=== PATIENT | male | born 1945 | race Caucasian/White ===

== ENCOUNTER 2018-03-06 00:05 | Inpatient (IN) | payer MEDICARE, OTHER ==
[2018-03-06] MEDS ORDERED: fentaNYL Citrate/PF 2,000 MCG in Sodium Chloride 0.9% 60 ML IV SCH ×2 (00:23→04:16)
[2018-03-06 00:46] LABS: ALT (SGPT) 9 U/L (8-55); AST (SGOT) 26 U/L (5-34); Albumin 2.8 g/dL (3.4-4.8); Alkaline Phosphatase 54 U/L (40-150); Anion Gap 15 mmol/L (10-20); BUN (Urea Nitrogen) 12 mg/dL (8.4-25.7); Bilirubin, Total 0.2 mg/dL (0.2-1.2); Calc. Creatinine Clearance 0 mL/min (70-130); Calcium 7.1 mg/dL (7.8-10.44); Carbon Dioxide 17 mmol/L (23-31); Chloride 114 mmol/L (98-107); Estimated GFR-MDRD Greater than 90; Globulin 2.1 g/dL (2.4-3.5); Glucose 74 mg/dL (80-115); Potassium 3.5 mmol/L (3.5-5.1); Protein, Total 4.9 g/dL (5.8-8.1); Sodium 142 mmol/L (136-145)
[2018-03-06 00:47] LABS: INR-International Normal Ratio 1.1; PTT 29.2 SEC (22.9-36.1); Prothrombin Time 14.2 SEC (12.0-14.7)
[2018-03-06 00:49] LABS: CKMB 2.5 ng/mL (0-6.6); Troponin I Less than 0.010 ng/mL (< 0.028)
[2018-03-06 00:56] LABS: Actual Bicarbonate (HCO3a) 17.7 mEq/L (22-28); Base Excess (BEa) -8.1 mEq/L (-2.0 to +3.0); O2 Tension (PaO2) 372.5 mmHg (> 70.0)
[2018-03-06 00:57] LABS: Analyzer IN Cardio ER; Calcium, Ionized 1.1 mmol/L (1.12-1.30); Hematocrit-ABG 36.3 % (42.0-52.0); Hemoglobin (Hb) 12.2 g/dL (14.0-18.0); Puncture Site R RADIAL
[2018-03-06 01:07] LABS: #Basophils 0.1 thou/uL (0.0-0.2); #Eosinphils 0.3 thou/uL (0.0-0.7); #Lymphocytes 2.6 thou/uL (1.20-3.40); %Basophils 0.4 % (0.0-1.0); %Eosinophils 1.6 % (0.0-10.0); %Lymphocytes 16.4 % (21.0-51.0); %Monocytes 6.2 % (0.0-10.0); %Neutrophils 75.5 % (42.0-75.0); Hemoglobin 11.8 g/dL (14.0-18.0); MDiff Complete? YES; Macrocytosis SLIGHT = 6-15 cells (100X) (0-5/hpf); Mean Corpuscular HGB CONC 32.4 g/dL (32.0-36.0); Mean Platelet Volume 8.6 fL (7.4-10.4); PLT Morphology Comment Appears Adequate; Platelet Count 153 thou/uL (130-400); RBC Distribution Width 11.7 % (11.5-14.5); Red Blood Cell (RBC) Count 3.47 mill/uL (4.70-6.10); White Blood Cell (WBC) Count 15.9 thou/uL (4.8-10.8)
[2018-03-06 01:25] LABS: Bilirubin Negative (Negative); Blood, Urine Moderate (Negative); Clarity CLEAR (Clear); Glucose, Urine (Dipstick) Negative (Negative); Leukocyte Trace (Negative); Nitrite Negative (Negative); Protein, Urine (Dipstick) Negative (Neg-Trace); Specific Gravity, Urine 1.017 (1.002-1.036); Urobilinogen 0.2 mg/dL (0.2-1.0); pH, Urine 5.5 (5.0-9.0)
[2018-03-06 01:28] LABS: Bacteria/HPF None Seen HPF (None Seen); Hyaline Casts/LPF 7-10 HYALINE CAST LPF (0-3 Hyaline); Pathc Cast-AUWi Flag 2.32 (0-2.49); RBC/HPF 21-50 HPF (0-3); Squamous Epithelial 0-3 HPF (0-3); WBC/HPF 0-3 HPF (0-3)
[2018-03-06] MEDS ORDERED: Piperacillin/Tazobactam 3.375 GM VIAL ONE (02:04)
[2018-03-06] MEDS ORDERED: Propofol 1,000 MG/100 ML VIAL IV PRN ×2 (03:04→04:16)
[2018-03-06] MEDS ORDERED: Lorazepam 2 MG/ML VIAL SLOW IVP PRN ×3 (03:04→14:49)
[2018-03-06] MEDS ORDERED: Morphine 4 MG/ML VIAL SLOW IVP PRN ×2 (03:04→04:16)
[2018-03-06] MEDS ORDERED: Fentanyl BOLUS 250 ML IVPB PRN ×2 (03:04→04:16)
[2018-03-06] MEDS ORDERED: DISCONTINUE PREVIOUS NARCOTIC PAIN MEDICATIONS AND BENZODIAZEPINES FS SCH ×2 (03:04→04:16)
[2018-03-06] MEDS ORDERED: Propofol BOLUS 1,000 MG/100 ML VIAL IV PRN ×2 (03:04→04:16)
[2018-03-06] MEDS ORDERED: Ondansetron ODT 4 MG TAB SL PRN (03:06)
[2018-03-06] MEDS ORDERED: Sodium Chloride 0.9% 1,000 ML IV SCH ×2 (03:06→04:15)
[2018-03-06] MEDS ORDERED: Ondansetron HCl/PF 4 MG/2 ML Vial IVP PRN ×2 (03:06→04:10)
[2018-03-06] MEDS ORDERED: Acetaminophen 325 MG TAB PO PRN (03:06)
[2018-03-06] MEDS ORDERED: Atropine Sulfate 1 mg/10 ml Syringe IV SCH (03:45)
[2018-03-06 03:53] LABS: Troponin I 0.021 ng/mL (< 0.028)
[2018-03-06] MEDS ORDERED: Ondansetron ODT 4 MG TAB PO PRN (04:10)
[2018-03-06] MEDS ORDERED: Acetaminophen 650 MG Suppository PR PRN (04:10)
[2018-03-06 04:12] VITALS: BMI 26.9
[2018-03-06] MEDS ORDERED: Ventilator Sedation Protocol 1 EACH FS SCH (04:15)
[2018-03-06 07:14] LABS: Actual Bicarbonate (HCO3a) 18.2 mEq/L (22-28); Base Excess (BEa) -5.3 mEq/L (-2.0 to +3.0); CO2 Tension 29.1 mmHg (35.0-45.0); Hemoglobin (Hb) 11.8 g/dL (14.0-18.0); O2 Tension (PaO2) 86.6 mmHg (> 70.0); pH, Arterial 7.41 (7.35-7.45)
[2018-03-06 07:16] LABS: ALV-art Gradient 90.925 (0-20); Puncture Site RRA
[2018-03-06] MEDS ORDERED: Prevnar 13-Val Conj/PF 0.5 ML SYRINGE IM ONE (09:00)
--- NOTE | 2018-03-06 09:27 | RAD ---
PORTABLE SUPINE CHEST: Date: 03/06/18 HISTORY: Altered mental status. Bradycardia. History of previous stroke. Endotracheal tube placement. FINDINGS: An endotracheal tube is in satisfactory position. NG tube is below the hemidiaphragm. Heart size is b orderline. Aorta is tortuous with atherosclerotic changes. Lungs show some chronic lung change. IMPRESSION: 1. Endotracheal and NG tubes in satisfactory position. 2. Chronic lung change. POS: [facility]
[2018-03-06] MEDS: Enoxaparin Sodium 30 MG/0.3 ML SYRINGE SC SCH (09:37)
[2018-03-06] MEDS: Famotidine/PF 20 mg/2ml Vial SLOW IVP SCH ×2 (09:38→20:24)
[2018-03-06] MEDS: Sodium Chloride 0.9% 1,000 ML IV SCH (09:45)
[2018-03-06] MEDS: Aspirin 81 mg Enteric Coated Tablet PO SCH (12:08)
--- NOTE | 2018-03-06 12:47 | CT ---
PRELIMINARY REPORT/[facility]/EMERGENCY AFTER HOURS PROCEDURE: Addendum created by Bob Zarate MD on 03/06/2018 12:40 AM Central Time ([place] & [place]) CRITICAL RESULT: The study was discussed on the telephone with [CARA Rothman] on 03/06/2018 12:40 AM CDT. The results were understood and acknowledged. Initial Report created on 03/06/2018 12:26 AM Central Time ( [place] & [place]) EXAM: CT Head Without Intravenous Contrast CLINICAL HISTORY: 72 years old, male; Signs and symptoms; Other: Unresponsive; Patient HX: stroke alert last seen n ormal at 2200, found unresponsive, previous stroke TECHNIQUE: Axial computed tomography images of the head/brain without intravenous contrast. COMPARISON: No relevant prior studies available. FINDINGS: Brain: No intracranial hemorrhage. No CT evidence of acute ischemia. Large old LEFT frontoparietal in farct with extensive white matter ischemic change. Dense atherosclerotic vascular calcifications are identified. Ventricles: No ventriculomegaly. The subarachnoid cisterns and extar-axial CSF spaces are unremarkabl e. Bones/joints: Unremarkable. No acute fracture. Soft tissues: Unremarkable. Sinuses: No acute sinusitis. Mastoid air cells: No mastoid effusion. IMPRESSION: No acute intracranial hemorrhage. Large old LEFT frontoparietal infarct and extensive small vessel ischemic change Thank you for allowing us to participate in the care of your patient. Dictated and Authenticated by: Bob Zarate MD 03/06/2018 12:26 AM Central Time ([place] & [place]) FINAL REPORT EMERGENCY AFTER HOURS CT OF BRAIN PERFORMED WITHOUT CONTRAST ENHANCEMENT: Date: 03/06/18 HISTORY: Patient found unresponsive, history of stroke. COMPARISON: 11/27/15. FINDINGS: There is generalized ventricular and sulcal prominence. There is a stable appearance to a large old l eft MCA infarct. There are no signs of intracerebral hemorrhage or extra-axial fluid collections. Chr onic white matter changes are noted. Mastoid air cells are clear. Mucosal disease is seen within the ethmoid and sphenoid air cells. IMPRESSION: 1. Old left MCA infarct. 2. No acute intracranial abnormalities. This report is in agreement with the preliminary report issued by [facility]. POS: [facility]
--- NOTE | 2018-03-06 12:48 | CON ---
DATE OF CONSULTATION: 03/06/2018 REASON FOR CONSULTATION: Acute respiratory failure related to bradycardia. HISTORY OF PRESENT ILLNESS: The patient is a 72-year-old male who was noted to have altered mental status at home. He was obtunded with a GCS of 6, had severe bradycardia with heart rate of 40, apparently was not protecting his airway and was subsequently intubated. Further workup by ER staff was largely unrevealing. He had a CT which apparently did not show any changes in the chronically occluded left ICA, which is known from previous stroke a couple of years ago. He also has a small focal high-grade occlusion of the right ICA. The patient is awake and alert this morning, wanting to be extubated. PAST MEDICAL HISTORY: 1. Chronic atrial fibrillation. 2. Stroke. PAST SURGICAL HISTORY: Hernia repair. SOCIAL HISTORY: Smokes 1-1/2 packs per day and has done so for the last 30 years. FAMILY MEDICAL HISTORY: Unremarkable. REVIEW OF SYSTEMS: Unable to obtain. ALLERGIES: None. MEDICATIONS PRIOR TO ADMISSION: [place] 3 fatty acids, Prilosec, aspirin, metoprolol, multivitamin, atorvastatin, and lisinopril. PHYSICAL EXAMINATION: VITAL SIGNS: Temperature 97.7, pulse 63, blood pressure 109/50, respiratory rate 17, O2 sat 100%. GENERAL: He is now awake, alert, and in no distress. HEENT: Pupils react. Sclerae icteric. Oropharynx clear. NECK: No JVD. LUNGS: Clear. CARDIOVASCULAR: S1, S2, irregularly irregular, no murmur. ABDOMEN: Soft, nontender, nondistended. EXTREMITIES: No clubbing, cyanosis, or edema. LABORATORY AND X-RAY FINDINGS: White blood cell count 15.9, hematocrit 36.3, platelet count 153. PH 7.41, pCO2 of 29, pO2 86 on SIMV rate 20, tidal volume 500, PEEP 5, pressure support 10, FiO2 30%. Sodium 142, potassium 3.5, chloride 114, CO2 17, BUN 12, creatinine 0.8, and glucose 74. Chest x-ray demonstrates cardiomegaly, flattened diaphragms. No mass, effusion or infiltrate. ASSESSMENT: 1. Acute respiratory failure - improved. 2. Bradycardia - improved. 3. Possible new stroke. PLAN: 1. The patient was extubated without difficulty. I have Cardiology look at him to make sure he does not need a pacemaker. 2. Neurology. We will also look at the patient. 3. GI prophylaxis with Protonix. 4. DVT prophylaxis with enoxaparin. The above encompassed 70 minutes time of it greater than 50% of the time was spent with the patient and/or the patient's unit in the hospital MTDD
--- NOTE | 2018-03-06 12:50 | CT ---
PRELIMINARY REPORT/[facility]/EMERGENCY AFTER HOURS PROCEDURE: Addendum created by Bob Zarate MD on 03/06/2018 12:54 AM Central Time ([place] & [place]) CRITICAL RESULT: The study was discussed on the telephone with [CARA Rothman] on 03/06/2018 12:54 AM CDT. The results were understood and acknowledged. Initial Report created on 03/06/2018 12:50 AM Central Time ( [place] & [place]) EXAM: CT Angiography Head With Intravenous Contrast CLINICAL HISTORY: 72 years old, male; Signs and symptoms; Other: Unresponsive; Patient HX: stroke alert last seen n ormal at 2200, found unresponsive, previous stroke; Additional info: *this is a cta head and cta neck * TECHNIQUE: Axial computed tomographic angiography images of the head with intravenous contrast using CT angiogra phy protocol. MIP reconstructed images were created and reviewed. Coronal and sagittal reformatted im ages were created and reviewed. COMPARISON: CT Brain WO Con 2018-03-06 00:20 FINDINGS: Right internal carotid artery: No acute findings. Intracranial segment is patent with no significant stenosis. No aneurysm. Right anterior cerebral artery: Unremarkable. No occlusion or significant stenosis. No aneurysm. Right middle cerebral artery: Unremarkable. No occlusion or significant stenosis. No aneurysm. Right posterior cerebral artery: Unremarkable. No occlusion or significant stenosis. No aneurysm. Right vertebral artery: Unremarkable as visualized. Left internal carotid artery: Complete occlusion. Left anterior cerebral artery: Unremarkable. No occlusion or significant stenosis. No aneurysm. Left middle cerebral artery: Unremarkable. No occlusion or significant stenosis. No aneurysm. Left posterior cerebral artery: Unremarkable. No occlusion or significant stenosis. No aneurysm. Left vertebral artery: Unremarkable as visualized. Basilar artery: Unremarkable. No occlusion or significant stenosis. No aneurysm. IMPRESSION: Complete occlusion of the LEFT internal carotid artery. There is reconstitution of the LEFT COLLETTE and M CA possibly from posterior communicating artery. Please see the neck CTA for further detail Thank you for allowing us to participate in the care of your patient. Dictated and Authenticated by: Bob Zarate MD 03/06/2018 12:50 AM Central Time ([place] & [place]) EXAM: CT Angiography Neck With Intravenous Contrast CLINICAL HISTORY: 72 years old, male; Signs and symptoms; Other: Unresponsive; Patient HX: stroke alert last seen n ormal at 2200, found unresponsive, previous stroke; Additional info: *this is a cta head and cta neck * TECHNIQUE: Axial computed tomographic angiography images of the neck with intravenous contrast using CT angiogra phy protocol. MIP reconstructed images were created and reviewed. COMPARISON: CT Brain WO Con 2018-03-06 00:20 FINDINGS: VASCULATURE: Right common carotid artery: Unremarkable. No significant stenosis. No dissection or occlusion. Right internal carotid artery: Short segment area of severe stenosis approximately 1 cm from the bifu rcation. Moderate atherosclerotic disease. Right external carotid artery: Unremarkable. No occlusion. Right vertebral artery: Unremarkable. No significant stenosis. No dissection or occlusion. Left common carotid artery: Unremarkable. No significant stenosis. No dissection or occlusion. Left internal carotid artery: Complete occlusion of the LEFT ICA just distal to the bifurcation. No s ignificant flow is identified to the level of the petrous ICA. Left external carotid artery: Unremarkable. No occlusion. Left vertebral artery: Unremarkable. No significant stenosis. No dissection or occlusion. NECK: Bones/joints: No acute fracture. No dislocation. Soft tissues: Endotracheal tube and enteric tube present. The soft tissues of the neck are unremarkable. CAROTID STENOSIS REFERENCE USING NASCET CRITERIA: % ICA stenosis = (1 - narrowest ICA diameter/diameter of distal cervical ICA) x 100. Mild - <50% stenosis. Moderate - 50-69% stenosis. Severe - 70-94% stenosis. Near occlusion - 95-99% stenosis. Occluded - 100% stenosis. IMPRESSION: Complete occlusion of the LEFT ICA just distal to the bifurcation Short segment area of severe stenosis of the RIGHT ICA 1 cm from the bifurcation. CRITICAL RESULT: The study was discussed on the telephone with [CARA Rothman] on 03/06/2018 1: 04 AM CDT. The results were understood and acknowledged. Thank you for allowing us to participate in the care of your patient. Dictated and Authenticated by: Bob Zarate MD 03/06/2018 1:04 AM Central Time ([place] & [place]) FINAL REPORT CT ANGIO OF HEAD AND NECK PERFORMED WITH IV CONTRAST ENHANCEMENT WITH 3D RECONSTRUCTIONS: Date: 03/06/18 HISTORY: Altered mental status. Stroke alert. Patient has a history of previous stroke. FINDINGS: CT ANGIO NECK: There are chronic appearing changes in the upper lobes of both lung goss. There is also some collat eralization of flow over the right chest related to the right arm injection and there appears to be s tenosis of the subclavian vein. An endotracheal tube is in satisfactory position. There is no significant adenopathy within the neck. The thyroid gland is within normal limits of size. Parapharyngeal spaces are clear. Mucosal changes are seen within the sphenoid and ethmoid air cells with minimal changes in the left maxillary sinus. Angiographic portion of this study yielded a good study. There are atherosclerotic changes of the aor tic arch. There is a separate origin of the left common carotid artery from the aortic arch. There is some atherosclerotic plaque at the origin of the left common carotid. On the right side, the right common carotid artery shows fairly minimal atherosclerotic plaque. There is moderate calcified plaque formation at the origin of the right internal and external carotid indira gage. There is no significant narrowing of the external carotid artery. However, there is a focal katherine rt segment severe stenosis of the right internal carotid artery slightly greater than 1.0 cm beyond i ts origin. On the left side, the left common carotid artery is small as compared to the right. There is plaque a t the origin of the right external carotid artery with only minimal narrowing at this level. There is complete occlusion of the origin of the left internal carotid artery. The vertebral arteries appear codominant. There is some moderate atherosclerotic plaque at the origin of both vertebral arteries. There is mild narrowing of the right vertebral at its origin. Distally, the left vertebral appears to make a greater contribution to the basilar artery. CT ANGIO HEAD: There is moderate atherosclerotic plaque of the cavernous portion of the right internal carotid arter y with patent appearing anterior and right middle cerebral arteries and their branches without signs of any thrombus. On the left side, the cavernous portion of the left internal carotid artery is completely occluded; h owever, there is flow seen within the A1 and M1 segments of the left anterior and middle cerebral art eries, respectively. This appears to be related to crossover flow from an anterior communicator, as w ell as from a left posterior communicating artery. The A2 branch and distal branch of the left anteri or cerebral artery appear unremarkable, and left middle cerebral artery branches show no signs of any thrombus. There has been a large left MCA infarct, which is old. The posterior cerebral arteries appear patent. IMPRESSION: 1. There is complete occlusion of the left internal carotid artery at its origin. 2. Severe stenosis of the right internal carotid artery just distal to its origin. Stenosis by NASCE T criteria is estimated at 70-94%. 3. Intracranially, no signs of any acute thrombus. There is occlusion of the cavernous portion of th e left internal carotid artery and evidence of an old left MCA infarct. Flow from a patent anterior c ommunicator and left posterior communicating artery supply the left anterior and middle cerebral indira gage and their branches. This report is in agreement with the preliminary report issued by [facility]. POS: [facility]
--- NOTE | 2018-03-06 14:32 | CON ---
DATE OF CONSULTATION: 03/06/2018 CHIEF COMPLAINT: Sudden loss of consciousness and alteration in level of alertness. HISTORY OF PRESENT ILLNESS: History was obtained from ER physician who called me last night as well as his and sister. The patient has had a prior left ICA 100% occlusion along with the left MCA CVA and he was sick. His baseline is , he is pretty independent but gets weak when he walks for a bit and he has fallen 4 times since last stroke. His stated even neighbors noticed that he quickly runs when he is getting weaker and falls. They have to limit the amount of time he has to take his dog for a walk. also reported in the past couple of weeks or so, he has been having some cough and increased sneezing. They took him to his primary care doctor and they thought it was due to allergies. The patient's reported that he has had low blood pressures in the past 1 week or so. Yesterday, they were sitting in the family room, watching news and he went to get his medications and noticed that he was not responding to her and he became cold, clammy and sweaty and she could not wake him up. She therefore called 911 and subsequently he was intubated. By the time he arrived at the ER, CT angiogram showed 30% blockage of right ICA and also no perfusion was done yesterday and he had 100% blockage of his left ICA. Overnight, he was stable and he is now extubated and other than his prior preexisting neurological deficits of right facial droop, right leg weakness and aphasia, reports he seems to be back to baseline at this time. PAST MEDICAL HISTORY: Positive for CVA in 2016 with the complete left ICA occlusion. He also has abdominal aortic aneurysm size 4.6 cm which is being monitored by his physician. He has atrial fibrillation. He has hyperlipidemia and he is on medications for the same. He has lower back pain and he has blood clots and peripheral vascular disease. PAST SURGICAL HISTORY: Hernia repair bilaterally. PSYCHIATRIC HISTORY: PTSD. SOCIAL HISTORY: He drinks daily less than 5 drinks per day. No drug use. He smokes daily. He has smoked for a number of years. ALLERGIES: No known drug allergies. FAMILY HISTORY: Negative for any acute stroke. CURRENT MEDICATIONS: At home atorvastatin, lisinopril, gabapentin, Prilosec, metoprolol, aspirin. LABORATORY DATA: His white count 15.9, hemoglobin 11.8, hematocrit 36.3, MCV 105 and MCH 34, platelets 153. PT 14.2, INR 1.1, PTT 29.2. Sodium 142, potassium 3.5, chloride 114, bicarbonate 17, BUN 12, creatinine 0.83, AST 26, ALT 9, glucose 74. IMAGING STUDIES: CT scan of the head and CT angio, no typed official report is available; however, per ER physician's note, there was no evidence of acute intracranial lesion, but he had a 30% occlusion of the right ICA and 100% occlusion of his left ICA. I reviewed a CT angiography report from 11/25/2015 which is available in the system and at that time as well he had a complete occlusion of internal carotid on the left at his origin with diminutive intracranial ICA on the left and bilateral proximal vertebral artery stenosis and 50% stenosis of origin of right ICA based on acid criteria and he had a left MCA infarct. PHYSICAL EXAMINATION: VITAL SIGNS: Blood pressure 116/48, pulse is 67, temperature 98 and chest clear. GENERAL APPEARANCE: Well-built, well-nourished, pleasant gentleman who he seems to have expressive aphasia. He is comfortable in his bed. CHEST: Clear vesicular breathing. CARDIOVASCULAR: S1, S2 heard, no murmurs. ABDOMEN: Soft, nontender, no organomegaly noted. NEUROLOGIC: Higher Intellectual functions, seems to understand my interaction, says yes or no. Has expressive aphasia (severe). Cranial nerves: Cranial nerves II-XII normal fundus exam. Normal pupillary reaction, normal extraocular movements, normal sensation of face bilaterally, right facial droop , normal elevation of palate, tongue is midline and decreased hearing bilaterally to finger rub. Motor examination: Bulk normal, tone normal, strength 5/5 throughout in upper limbs and strength 5/5 left lower extremity and in the right lower extremity, he has mild weakness in the extensors of his knee and also in his ankle dorsi flexors and he seems to have a plantar flexion at rest in the right leg. Deep tendon reflex and muscle groups tested are iliopsoas, hamstrings, quadriceps, ankle dorsiflexion, plantar flexion, deltoid , biceps, triceps, wrist extension/flexion, finger extension and flexion bilaterally. His sensory examination: Deep tendon reflexes 1+ throughout in upper and lower extremities. Sensory: Normal touch and vibration, difficult to assess proprioception due to aphasia. Cerebellar: Normal finger to nose, heel to bella. Speech: He has expressive aphasia. IMPRESSION: Patient is a 72-year-old man who was at his baseline other than recent history of having had low blood pressures. He is independent. He has had a prior left MCA stroke associated with left complete occlusion of his left ICA. His baseline is, he is independent with most functioning, although reports he has fallen 4 times since last year and when he gets tired, he walks fast and tends to fall. Otherwise, he has a right facial droop and at baseline along with his aphasia. His event yesterday seems to be more cardiac than neurological based on the history and due to the nature of presentation plus history and this was not considered to be acute stroke and no IV TPA was given. At this time, I think this is most likely due to hypotension and possible cardiac issues and not an acute CVA; however, due to his vascular disease, we need to rule out any possibility of a posterior circulation event contributing to the syncope as well. RECOMMENDATIONS: 1. MRI of the brain with and without gadolinium. This MRI can be performed once the CT contrast is eliminated from his system. 2. Please call if there are any other neurological events. 3. I will continue to follow the patient with you for recommendations for antiplatelet agents. He can continue aspirin for now and along with Lovenox. I will follow up with you. KYLIE
--- NOTE | 2018-03-06 14:45 | MRI ---
MRI OF BRAIN PERFORMED WITH AND WITHOUT CONTRAST ENHANCEMENT: Date: 03/06/18 HISTORY: Stroke symptoms. History of previous stroke. COMPARISON: CT angio of head and brain done earlier today. FINDINGS: There is generalized ventricular and sulcal prominence. An old large left MCA infarct is noted. I do not appreciate any evidence of hemorrhage or mass effect. On the diffusion-weighted sequence, I do not see any signs that would suggest any type of acute infar ct. Postcontrast images show no areas of abnormal contrast enhancement. Mastoid air cells are clear. There are small air fluid levels in both maxillary sinuses, and bilatera l ethmoid and sphenoid air cell disease, and also minimal changes of the frontal sinuses. IMPRESSION: 1. Sinusitis change. 2. Old left middle cerebral artery infarct. 3. No acute intracranial abnormalities. POS: [facility]
[2018-03-06] MEDS ORDERED: Folic Acid 1 MG TAB PO SCH (15:00)
--- NOTE | 2018-03-06 15:07 | ULT ---
ABDOMINAL AORTIC ULTRASOUND: Date: 03/06/18 HISTORY: Abdominal aortic aneurysm follow-up. COMPARISON: 11/28/15. FINDINGS: Real-time imaging of the abdominal aorta was performed. Proximal aorta measures 2.1 cm. The mid aorta is partially obscured. The more distal infrarenal aorta is mildly aneurysmal with a measurement of a pproximately 3.9 cm in AP dimension. Transversely, a measurement of 5.2 cm is obtained, but aorta colt ears tortuous. IMPRESSION: Stable infrarenal abdominal aortic aneurysm. POS: [facility]
[2018-03-06] MEDS ORDERED: ISOVUE-370 76%-LOCM 1 ML ONE (16:43)
[2018-03-06] MEDS ORDERED: Gadobenate Dimeglumine 529 MG/1 ML (20ML VIAL) ONE (16:47)
[2018-03-06] MEDS: Thiamine HCl 200 MG/2 ML VIAL SLOW IVP SCH (16:50)
--- NOTE | 2018-03-06 19:21 | PDOC.PN ---
- Subjective Encounter Start Date: 03/06/18 Encounter Start Time: 13:00 Subjective: pt up in bed follows command - Objective Resuscitation Status: Resuscitation Status FULL:Full Resuscitation Vital Signs & Weight: Vital Signs (12 hours) Temp Pulse Resp BP Pulse Ox 03/06/18 16:57 138/52 L 03/06/18 15:00 98.6 F 03/06/18 11:49 98 03/06/18 11:00 98.8 F 03/06/18 09:15 78 16 99 03/06/18 08:00 98.7 F 62 20 99 Weight Weight 162 lb 0.636 oz Most Recent Monitor Data Heart Rate from ECG 80 NIBP 149/68 NIBP BP-Mean 102 Respiration from ECG 14 SpO2 94 I&O: 03/05/18 03/06/18 03/07/18 06:59 06:59 06:59 Intake Total 215 1653 Output Total 1335 1005 Balance -1120 648 Result Diagrams: 03/06/18 00:07 03/06/18 00:11 Phys Exam - Physical Examination HEENT: PERRLA, moist MMs, sclera anicteric, TM's clear, oral pharynx no lesions , 2+ tonsils Neck: no nodes, no JVD, supple, full ROM Respiratory: no wheezing, no rales, no rhonchi, wheezing present, clear to auscultation bilateral Cardiovascular: RRR, no significant murmur, no rub, gallop, irregular Gastrointestinal: soft, non-tender, no distention, positive bowel sounds pt has aphasia Dx/Plan (1) Acute metabolic encephalopathy Code(s): G93.41 - METABOLIC ENCEPHALOPATHY Status: Acute (2) Aphasia Code(s): R47.01 - APHASIA Status: Acute Comment: Large left MCA CVA. Continue Speech therapy. (3) CVA (cerebral vascular accident) Code(s): I63.9 - CEREBRAL INFARCTION, UNSPECIFIED Status: Acute Comment: Continue ASA. Possibly at [facility] in the future per Dr. De Los Santos. Mobilize. D/C cristina. (4) Bradycardia Code(s): R00.1 - BRADYCARDIA, UNSPECIFIED Status: Acute - Plan * . Review of Systems - Review of Systems Respiratory: negative: Cough, Dry, Shortness of Breath, Hemoptysis, SOB with Excertion, Pleuritic Pain, Sputum, Wheezing Cardiovascular: negative: chest pain, palpitations, orthopnea, paroxysmal nocturnal dyspnea, edema, light headedness, other Gastrointestinal: negative: Nausea, Vomiting, Abdominal Pain, Diarrhea, Constipation, Melena, Hematochezia, Other - Medications/Allergies Allergies/Adverse Reactions: Allergies Allergy/AdvReac Type Severity Reaction Status Date / Time No Known Drug Allergies Allergy Verified 11/24/15 22:51 Medications: Current Medications Acetaminophen (Tylenol) 650 mg PO Q4H PRN PRN Reason: Headache/Fever or Pain Acetaminophen (Tylenol) 650 mg OK Q4H PRN PRN Reason: Headache/Fever or Pain Aspirin (Ecotrin) 81 mg PO 1200 [facility] Last Admin: 03/06/18 12:08 Dose: 81 mg Enoxaparin Sodium (Lovenox) 30 mg SC 0900 [facility] Last Admin: 03/06/18 09:37 Dose: 30 mg Famotidine (Pepcid) 20 mg SLOW IVP Q12HR [facility] Last Admin: 03/06/18 09:38 Dose: 20 mg Folic Acid (Folvite) 1 mg PO DAILY [facility] Sodium Chloride (Normal Saline 0.9%) 1,000 mls @ 75 mls/hr IV .[id number] [facility] Last Admin: 03/06/18 09:45 Dose: 1,000 mls Lorazepam (Ativan) 1 mg SLOW IVP Q4H PRN PRN Reason: Anxiety/Agitation Miscellaneous Medication (Ventilator Sedation Protocol) 1 each FS ONE [facility] Stop: 03/07/18 04:16 Discontinue Previous Narcotic Pain Medications And Benzodiazepines 1 each FS .ONE [facility] Stop: 04/05/18 04:16 Ondansetron HCl (Zofran Odt) 4 mg PO Q6H PRN PRN Reason: Nausea/Vomiting Ondansetron HCl (Zofran) 4 mg IVP Q6H PRN PRN Reason: Nausea/Vomiting Thiamine HCl (Thiamine Hcl) 100 mg SLOW IVP Q24HR [facility] Last Admin: 03/06/18 16:50 Dose: 100 mg
--- NOTE | 2018-03-06 20:03 | CON ---
DATE OF CONSULTATION: 03/06/2018 HISTORY OF PRESENT ILLNESS: Brady Turner is a 72-year-old white male who was evaluated in 08/2016 in the office by Dr. Pak. Prior to that in 11/2015, he had a left middle cerebral artery stroke and was hospitalized at [facility]. 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 He underwent rehab and then saw Dr. Pak in 08/2016 for evaluation of shortness of breath and syncope. He felt that the syncope was probably cough related. For evaluation of his shortness of breath, the patient underwent Lexiscan Cardiolite testing, which was normal without evidence of reversible ischemia. He also underwent echocardiography, which revealed ejection fraction of 60%-65% with grade I diastolic dysfunction, moderate concentric left ventricular hypertrophy, mild left atrial enlargement, mild tricuspid regurgitation, and mild mitral regurgitation. There was moderate aortic stenosis with a mean gradient of 15.8 mm and aortic valve area of 0.98 cm2. Again, this was in 2015. He also was found to have severe peripheral vascular disease and as best I can tell from the office record, underwent an aortogram and peripheral vessel runoff at [facility]; however, no results are in the office records. He has not seen Dr. Pak since that time. From reviewing the discharge summaries from the hospital and then at rehab as well as the office notes, he has never been on metoprolol during those visits. It is unclear when that was started. Presumably this was started by the [facility] where he seeks most of his care. He apparently was doing well yesterday until 2244. His noticed that he was obtunded and responsive. EMS was called. He was bradycardic during transfer. Apparently in the emergency room, he was given multiple doses of atropine and pressors. He also was intubated due to concern about protection of his airway. He has since been weaned and extubated this morning. Mr. Turner denies any chest discomfort or recent shortness of breath. PAST MEDICAL HISTORY: Hypertension, hyperlipidemia, left middle cerebral artery CVA, abdominal aortic aneurysm, and smoker. OPERATIONS: Bilateral herniorrhaphy. MEDICATIONS: Atorvastatin 80 daily, lisinopril 40 mg b.i.d., gabapentin 800 mg - 4 daily, Prilosec 20 mg daily, metoprolol 25 mg ER b.i.d. and aspirin 500 mg daily. ALLERGIES: None. SOCIAL HISTORY: The patient continues to smoke 1-1/2 packs per day. He used to be a heavy drinker in the past. FAMILY HISTORY: Father had myocardial infarction. Apparently, he had another brother who had sudden . REVIEW OF SYSTEMS: A 12-point review of systems unremarkable. Specifically, he denies any abdominal pain. PHYSICAL EXAMINATION: VITAL SIGNS: 116/48, pulse is 67. HEENT: PERRL. NECK: Supple. LUNGS: Chest is clear. CARDIAC: S1 and S2 are normal, without any S3 or S4. There is a 2/6 systolic murmur in the aortic area radiating to the carotids. Carotid upstroke is diminished bilaterally. ABDOMEN: Normal bowel sounds without tenderness, organomegaly. EXTREMITIES: Revealed trace pretibial edema. NEUROLOGIC: The patient has mild right hemiparesis and aphasia. SKIN: Warm and dry. LABORATORY DATA: EKG reveals sinus bradycardia with rate of 52 per minute, but otherwise unremarkable. He does have heart rates at times in the 40s. IMPRESSION: 1. Respiratory failure and inability to protect his airway, which essentially is resolved and patient is extubated at this time. 2. Unresponsive episode with altered mental status. So they could have been due to bradycardia or he could have had another cerebrovascular accident. 3. Moderate aortic stenosis on echo 2 years ago. 4. Abdominal aortic aneurysm - in 11/2015. This was 4.2 cm x 4.6 cm. 5. Left middle cerebral artery cerebrovascular accident in 11/2015 with total occlusion of left internal carotid artery and 50% right internal carotid artery stenosis. 6. Hypertension. 7. Hypercholesterolemia. 8. The patient continues to smoke. 9. Peripheral vascular disease. PLAN: His episode of altered mental status, unresponsiveness and diaphoresis certainly could be due to extreme bradycardia. The metoprolol apparently has been added since 09/2016 when he was last seen in the office. This has been discontinued. His heart rate has come up into the 60s for the most part. Certainly, he will need to be continually monitored while in the hospital. Echocardiogram will be performed to reassess his aortic stenosis. Abdominal ultrasound also will be performed to reassess his abdominal aortic aneurysm. [facility] NURSING FACILITYEvgeny
[2018-03-06] MEDS: Acetaminophen 325 MG TAB PO PRN (20:23)
[2018-03-07] MEDS: Sodium Chloride 0.9% 1,000 ML IV SCH ×2 (02:45→03:13)
[2018-03-07] MEDS: Acetaminophen 325 MG TAB PO PRN ×2 (04:24→09:42)
[2018-03-07] MEDS: hydrALAZINE 20 MG/ML VIAL SLOW IVP PRN ×3 (04:25→16:24)
[2018-03-07 04:51] LABS: #Basophils 0.1 thou/uL (0.0-0.2); #Eosinphils 0.2 thou/uL (0.0-0.7); #Lymphocytes 1.5 thou/uL (1.20-3.40); #Monocytes 0.8 thou/uL (0.11-0.59); #Neutrophils 5.7 thou/uL (1.40-6.50); %Basophils 0.9 % (0.0-1.0); %Eosinophils 2.7 % (0.0-10.0); %Lymphocytes 17.8 % (21.0-51.0); %Monocytes 9.9 % (0.0-10.0); %Neutrophils 68.8 % (42.0-75.0); Hemoglobin 11.6 g/dL (14.0-18.0); Mean Corpuscular HGB CONC 32.8 g/dL (32.0-36.0); Mean Corpuscular Hemoglobin 34.1 pg (27.0-31.0); Platelet Count 133 thou/uL (130-400); RBC Distribution Width 11.7 % (11.5-14.5); Red Blood Cell (RBC) Count 3.41 mill/uL (4.70-6.10); White Blood Cell (WBC) Count 8.3 thou/uL (4.8-10.8)
[2018-03-07 05:00] LABS: Anion Gap 12 mmol/L (10-20); BUN (Urea Nitrogen) 7 mg/dL (8.4-25.7); Calc. Creatinine Clearance 101 mL/min (70-130); Carbon Dioxide 20 mmol/L (23-31); Chloride 112 mmol/L (98-107); Estimated GFR-MDRD Greater than 90; Glucose 102 mg/dL (80-115); Potassium 3.9 mmol/L (3.5-5.1); Sodium 140 mmol/L (136-145)
[2018-03-07] MEDS: Folic Acid 1 MG TAB PO SCH (09:42)
[2018-03-07] MEDS: Enoxaparin Sodium 30 MG/0.3 ML SYRINGE SC SCH (09:42)
--- NOTE | 2018-03-07 10:40 | PRG ---
DATE OF SERVICE: 03/07/2018 SUBJECTIVE: Mr. Turner was extubated yesterday. He did well. He has been in good spirits today. He wants to have his Henderson catheter removed. PHYSICAL EXAMINATION: VITAL SIGNS: His temperature is 98.6, pulse 76, blood pressure 179/76, O2 sat 100%. HEENT: Unremarkable. NECK: No adenopathy or JVD. CHEST: Clear. CARDIAC: S1 and S2 regular, without murmur. ABDOMEN: Soft, nontender. EXTREMITIES: No clubbing, cyanosis, or edema. LABORATORY DATA: Sodium 140, potassium 3.9, chloride 112, CO2 20, BUN 7, creatinine 0.7, glucose 102 . White blood cell count 8.3, hematocrit 35.5, platelet count 133. ASSESSMENT: 1. Status post episode of bradycardia. 2. Occlusion of left ICA. PLAN: The patient will be transferred to telemetry to further monitor his heart rate. His pulmonary status is stable. His Henderson catheter will be removed. I appreciate the assistance from Cardiology and Neurology in further evaluating the patient's underlying problems.
[2018-03-07] MEDS: Aspirin 81 mg Enteric Coated Tablet PO SCH (11:15)
[2018-03-07] MEDS: Famotidine 20 MG TAB PO SCH ×2 (11:15→20:43)
[2018-03-07] MEDS: Famotidine/PF 20 mg/2ml Vial SLOW IVP SCH (11:20)
--- NOTE | 2018-03-07 12:46 | PRG ---
DATE OF SERVICE: 03/07/2018 INTERVAL HISTORY: The patient has remained stable. No further neurological events. He was with his brother today in CCU room and was not present during my visit. Reports, MRI scan of the brain did not show any acute event and he has old left MCA infarct, which is rather large and no acute intr acranial abnormalities. His aortic ultrasound scan shows 5.2 cm aneurysmal dilatation and his echoca rdiogram report was reviewed. His EF is at 61.2. LABORATORY RESULTS: White count 8.3, hemoglobin 11.6, hematocrit 35.5, and platelets 133. Chemistry : Sodium 140, potassium 3.9, chloride 112, bicarbonate 20, BUN 7, creatinine 0.7 and PT 14.2, INR 1. 1, PTT 29.2. PHYSICAL EXAMINATION: VITAL SIGNS: Blood pressure 166/81, pulse is 89, and temperature 98.5. NEUROLOGIC: Higher intellectual functions seems to follow appropriate commands and he has expressive aphasia. CRANIAL NERVOUS: Right facial droop. Rest of cranial nerve exam is normal. MOTOR EXAMINATION: Normal strength in both upper extremities, mild weakness in the right lower extre mity, normal strength in left lower extremity. IMPRESSION: The patient is a 72-year-old man, who came with a syncopal event. His MRI is negative f or any acute neurological events. At this time, diagnosis is most likely due to cardiovascular event rather than another neurological event. RECOMMENDATIONS: Continue present medications for stroke prophylaxis. Please call Neurology if you have any additional questions.
[2018-03-07] MEDS ORDERED: Lisinopril 10 MG TAB PO SCH (13:30)
[2018-03-07] MEDS: Thiamine HCl 200 MG/2 ML VIAL SLOW IVP SCH (16:25)
[2018-03-07] MEDS ORDERED: traZODone HCl 50 MG TAB PO PRN (17:22)
[2018-03-07] MEDS ORDERED: Amlodipine 10 MG TAB PO SCH (17:30)
[2018-03-07] MEDS: Ferrous Sulfate 325 MG TAB PO SCH (20:43)
[2018-03-07] MEDS: Atorvastatin Calcium 40 MG TAB PO SCH (20:43)
[2018-03-07] MEDS: Gabapentin 400 MG CAP PO SCH (20:44)
--- NOTE | 2018-03-07 20:46 | PDOC.PN ---
- Subjective Encounter Start Date: 03/07/18 Encounter Start Time: 11:45 Subjective: pt up in chair wants to go home - Objective Resuscitation Status: Resuscitation Status FULL:Full Resuscitation Vital Signs & Weight: Vital Signs (12 hours) Temp Pulse Resp BP BP BP Pulse Ox 03/07/18 17:56 92 187/81 H 03/07/18 16:24 83 174/80 H 03/07/18 16:00 99.6 F 83 20 174/80 H 174/80 H 95 03/07/18 13:39 193/77 H 03/07/18 12:20 98.8 F 82 16 202/88 H 98 03/07/18 11:17 98.5 F 03/07/18 10:01 77 172/70 H 03/07/18 09:09 100 Weight Weight 162 lb 0.636 oz Most Recent Monitor Data Heart Rate from ECG 89 NIBP 166/81 NIBP BP-Mean 130 Respiration from ECG 23 SpO2 100 I&O: 03/06/18 03/07/18 03/08/18 06:59 06:59 06:59 Intake Total 215 2892 740 Output Total 1335 1725 1245 Balance -1120 1167 505 Result Diagrams: 03/07/18 03:32 03/07/18 03:32 Phys Exam - Physical Examination HEENT: PERRLA, moist MMs, sclera anicteric, TM's clear, oral pharynx no lesions , 2+ tonsils Neck: no nodes, no JVD, supple, full ROM Respiratory: no wheezing, no rales, no rhonchi, wheezing present, clear to auscultation bilateral Cardiovascular: RRR, no significant murmur, no rub, gallop, irregular Gastrointestinal: soft, non-tender, no distention, positive bowel sounds aphasia Dx/Plan (1) Acute metabolic encephalopathy Code(s): G93.41 - METABOLIC ENCEPHALOPATHY Status: Acute (2) Aphasia Code(s): R47.01 - APHASIA Status: Acute Comment: Large left MCA CVA. Continue Speech therapy. (3) CVA (cerebral vascular accident) Code(s): I63.9 - CEREBRAL INFARCTION, UNSPECIFIED Status: Acute Comment: Continue ASA. Possibly at [facility] in the future per Dr. De Los Santos. Mobilize. D/C cristina. (4) Bradycardia Code(s): R00.1 - BRADYCARDIA, UNSPECIFIED Status: Acute - Plan * pt's hr has improved with holding of the bb. blood cx one bottle gram positive afua i believe this is a contaminate. * mri brain is negative. Pt most likely had a syncopal episode due to a cardiac event. Pt's AAA is stable per ultrasound. Review of Systems - Review of Systems ENT: negative: Ear Pain, Ear Discharge, Nose Pain, Nose Discharge, Nose Congestion, Mouth Pain, Mouth Swelling, Throat Pain, Throat Swelling, Other Respiratory: negative: Cough, Dry, Shortness of Breath, Hemoptysis, SOB with Excertion, Pleuritic Pain, Sputum, Wheezing Cardiovascular: negative: chest pain, palpitations, orthopnea, paroxysmal nocturnal dyspnea, edema, light headedness, other Gastrointestinal: negative: Nausea, Vomiting, Abdominal Pain, Diarrhea, Constipation, Melena, Hematochezia, Other Genitourinary: negative: Dysuria, Frequency, Incontinence, Hematuria, Retention , Other - Medications/Allergies Allergies/Adverse Reactions: Allergies Allergy/AdvReac Type Severity Reaction Status Date / Time No Known Drug Allergies Allergy Verified 11/24/15 22:51 Medications: Current Medications Acetaminophen (Tylenol) 650 mg PO Q4H PRN PRN Reason: Headache/Fever or Pain Last Admin: 03/07/18 09:42 Dose: 650 mg Acetaminophen (Tylenol) 650 mg NM Q4H PRN PRN Reason: Headache/Fever or Pain Amlodipine Besylate (Norvasc) 10 mg PO DAILY [facility] Aspirin (Ecotrin) 81 mg PO 1200 [facility] Last Admin: 03/07/18 11:15 Dose: 81 mg Atorvastatin Calcium (Lipitor) 80 mg PO HS [facility] Last Admin: 03/07/18 20:43 Dose: 80 mg Enoxaparin Sodium (Lovenox) 30 mg SC 0900 [facility] Last Admin: 03/07/18 09:42 Dose: 30 mg Famotidine (Pepcid) 20 mg PO BID [facility] Last Admin: 03/07/18 20:43 Dose: 20 mg Ferrous Sulfate (Feosol) 325 mg PO TID [facility] Last Admin: 03/07/18 20:43 Dose: 325 mg Folic Acid (Folvite) 1 mg PO DAILY [facility] Last Admin: 03/07/18 09:42 Dose: 1 mg Gabapentin (Neurontin) 1,200 mg PO TID [facility] Last Admin: 03/07/18 20:44 Dose: 1,200 mg Hydralazine HCl (Apresoline) 10 mg SLOW IVP Q4H PRN PRN Reason: SBP GREATER THAN 160 Last Admin: 03/07/18 16:24 Dose: 10 mg Iron/Minerals/Multivitamins (Theragran M) 1 tab PO DAILY [facility] Lisinopril (Zestril) 40 mg PO DAILY [facility] Lorazepam (Ativan) 1 mg SLOW IVP Q4H PRN PRN Reason: Anxiety/Agitation Discontinue Previous Narcotic Pain Medications And Benzodiazepines 1 each FS .ONE [facility] Stop: 04/05/18 04:16 Ondansetron HCl (Zofran Odt) 4 mg PO Q6H PRN PRN Reason: Nausea/Vomiting Last Admin: 03/07/18 17:57 Dose: 4 mg Ondansetron HCl (Zofran) 4 mg IVP Q6H PRN PRN Reason: Nausea/Vomiting Pantoprazole Sodium (Protonix) 40 mg PO DAILY [facility] Thiamine HCl (Thiamine Hcl) 100 mg SLOW IVP Q24HR [facility] Last Admin: 03/07/18 16:25 Dose: 100 mg Trazodone HCl (Desyrel) 50 mg PO HS PRN PRN Reason: Insomnia
[2018-03-07] MEDS ORDERED: Non-Formulary Item 1 EACH (Atorvastatin Calcium [Atorvastatin Calcium] 80 MG) PO SCH (21:00)
[2018-03-07] MEDS ORDERED: Atorvastatin Calcium 40 MG TAB PO SCH (21:00)
[2018-03-08 05:13] LABS: #Basophils 0.1 thou/uL (0.0-0.2); #Eosinphils 0.2 thou/uL (0.0-0.7); #Lymphocytes 1.7 thou/uL (1.20-3.40); #Monocytes 0.6 thou/uL (0.11-0.59); #Neutrophils 5.8 thou/uL (1.40-6.50); %Basophils 0.7 % (0.0-1.0); %Eosinophils 2.6 % (0.0-10.0); %Monocytes 7.1 % (0.0-10.0); %Neutrophils 69.6 % (42.0-75.0); Hemoglobin 11.8 g/dL (14.0-18.0); Mean Corpuscular HGB CONC 32.9 g/dL (32.0-36.0); Mean Platelet Volume 8.8 fL (7.4-10.4); Platelet Count 142 thou/uL (130-400); RBC Distribution Width 11.7 % (11.5-14.5); Red Blood Cell (RBC) Count 3.46 mill/uL (4.70-6.10); White Blood Cell (WBC) Count 8.3 thou/uL (4.8-10.8)
[2018-03-08 05:55] LABS: Anion Gap 10 mmol/L (10-20); BUN (Urea Nitrogen) Less than 4 mg/dL (8.4-25.7); Calc. Creatinine Clearance 99 mL/min (70-130); Calcium 8.6 mg/dL (7.8-10.44); Carbon Dioxide 25 mmol/L (23-31); Cardiac Risk 3.1 (Less than 4.5); Chloride 108 mmol/L (98-107); Cholesterol 101 mg/dl (< 200 Desired); Estimated GFR-MDRD Greater than 90; Glucose 103 mg/dL (80-115); HDL Cholesterol 33 mg/dL (>60 Neg Risk); LDL Cholesterol, Calculated 52 mg/dL; Potassium 3.2 mmol/L (3.5-5.1); Sodium 140 mmol/L (136-145); Triglycerides 78 mg/dL (Less than 150)
[2018-03-08] MEDS: Enoxaparin Sodium 30 MG/0.3 ML SYRINGE SC SCH (08:34)
[2018-03-08] MEDS: Folic Acid 1 MG TAB PO SCH (08:34)
[2018-03-08] MEDS: Amlodipine 10 MG TAB PO SCH (08:34)
[2018-03-08] MEDS: Ferrous Sulfate 325 MG TAB PO SCH ×3 (08:34→21:36)
[2018-03-08] MEDS: Gabapentin 400 MG CAP PO SCH ×3 (08:35→21:37)
[2018-03-08] MEDS: Multivitamin W/ Minerals 1 TAB PO SCH (08:35)
[2018-03-08] MEDS: Lisinopril 20 MG TAB PO SCH (08:35)
[2018-03-08] MEDS: Famotidine 20 MG TAB PO SCH ×2 (08:35→21:36)
[2018-03-08] MEDS ORDERED: Lisinopril 20 MG TAB PO SCH (09:00)
[2018-03-08] MEDS ORDERED: Iopamidol 370 76% 100 ML VIAL ONE (09:40)
--- NOTE | 2018-03-08 11:45 | PRG ---
DATE OF SERVICE: 03/08/2018. SUBJECTIVE: The patient appears to be doing better. PHYSICAL EXAMINATION: VITAL SIGNS: Temperature is 98.0, pulse 68, blood pressure 158/72, O2 sat 93%. HEENT: Unremarkable. NECK: No JVD. CHEST: Clear without wheezing. CARDIAC: S1 and S2 regular. ABDOMEN: Soft. EXTREMITIES: No edema. LABORATORY DATA: White blood cell count 8.3, hematocrit 35.8, platelet count 142. Sodium 140, potas sium 3.2, chloride 108, CO2 25, BUN 4, creatinine 0.7, glucose 103. ASSESSMENT: 1. Status post acute respiratory failure requiring mechanical ventilation. 2. Status post episode of bradycardia. 3. Occlusion of left ICA. PLAN: Pulmonary status is currently stable. He continues evaluation by Neurology and Cardiology. H is prognosis is poor.
--- NOTE | 2018-03-08 11:49 | CON ---
DATE OF CONSULTATION: 03/08/2018 REQUESTING PHYSICIAN: Dr. Gerson Carter CHIEF COMPLAINT: Loss of consciousness. HISTORY OF PRESENT ILLNESS: The patient is a 72-year-old white man most typically followed at the [place] . He is a lifelong smoker, had exposure to Agent [place] in the [place] conflict and 2 years ago had a left hemispheric CVA that was associated with complete occlusion of the left internal carotid syste m. Thursday evening of this past weekend he was sitting in his chair and his noticed that he was breaking out in a cold sweat and was very poorly responsive. EMS was summoned and by report he rece ived atropine and pressor agents in transit for severe bradycardia. His heart rates were in the 40s and 50s here, but I was not able to find the EMS report to document what his heart rates and blood pr essures were. He was intubated because of his obtunded mental status, but was extubated the in day. In speaking with the patient's , a few months ago, he had an episode that she insists was a mini stroke, but it was characterized as a near loss of consciousness where he slumped over. Over the last several months or even couple of years the patient has had decreasing exercise tolerance. Since his stroke he has fallen several times. He denies any focal symptoms manifest as transient vis ual changes or extremity weakness or paresthesias. At baseline, he has right body weakness, worse on the legs and arm and some right facial droop. PAST MEDICAL HISTORY: Significant for chronic atrial fibrillation, cerebral vascular disease, hypert ension and an abdominal aortic aneurysm. SOCIAL HISTORY: The patient smokes about a pack and a half of cigarettes a day and he used to be a h eavy drinker in the past. HOME MEDICATIONS: His home medications are listed as Lopressor 50 mg b.i.d., Lipitor 80 mg at bedtim e, lisinopril 20 mg a day, nicotine patch, Mobic 15 mg a day, iron sulfate 325 mg t.i.d., Prilosec 20 mg a day, Neurontin 1200 mg t.i.d., multivitamins, trazodone at bedtime p.r.n., fish oil, ProAir i nhaler p.r.n., guaifenesin 200 mg q.6h., loratadine 10 mg a day. ALLERGIES: He denies any medical allergies. FAMILY HISTORY: Significant for his father having had a myocardial infarction and a brother who had a sudden episode. REVIEW OF SYSTEMS: Negative for any admitted breathing difficulties. Negative for any chest pain. Positive for his decreasing exercise tolerance and frequent falls. He has had about a 30 pound weigh t loss over the course of about 2 years. He denies any crampy leg pain on ambulation. Denies any tr ansient eye, speech, facial or extremity symptoms consistent with TIAs. PHYSICAL EXAMINATION: GENERAL: He is a rather weathered appearing man in no distress. VITAL SIGNS: Currently heart rates are in the 60s, blood pressure 158/72, room air O2 sats are 93%, T-max has been 98.8 over the last 24 hours. Heart rates were in the mid to upper 40s for the first f ew hours of his hospitalization, weight 158 pounds. HEENT: He has no obvious xanthelasma. He has a slight right facial droop. NECK: No JVD. Bilateral carotid bruits. LUNGS: He has clear breath sounds. HEART: Irregularly irregular rate and rhythm with systolic murmurs heard throughout the precordium. ABDOMEN: Soft and nontender. I am not able to appreciate a palpable mass. He has active bowel soun ds and an audible abdominal bruit. EXTREMITIES: He has easily palpable radial, femoral, popliteal, and posterior tibial pulses. Both f emorals are associated with bruits. I am not able to palpate dorsalis pedis pulses. Capillary refil l on the right foot is brisk and about 1 second in the left foot. He has no clubbing, cyanosis or ed zen. NEURO: The patient is notably dysarthric and has right facial droop. Otherwise, cranial nerves II-X II are grossly intact. He has some subtle right arm weakness most notable on elbow extensors, more p ronounced right knee flexors and extensor weakness, left-sided strength seems normal. LABORATORY DATA: His white count is 15.9, hemoglobin 11.8, hematocrit 36.3, platelets 153,000. Elec trolytes were normal. Glucose 74, BUN 12, creatinine 0.83. LFTs were normal. Calcium 7.1, protein 4.9, albumin 2.8. PT 14.2, INR 1.1, PTT 29.2. Fasting lipids were triglycerides 78, cholesterol 101 , LDL 52 and HDL 33. Urinalysis showed 21-50 red cells and trace leukocyte esterase. Echocardiograp hy showed an EF of around 60% with a peak transaortic valvular gradient of about 30 mmHg and mean gra dient of around 16. IMAGING: His chest x-ray shows very prominent pulmonary vascular markings. This is an intubated candy m, it is a little bit low and not able to identify the clavicles to assess for rotation. He has pro minence in the left suprahilar region that probably represents his aorta and on previous x-rays from a couple of years ago he did seem to have a somewhat tortuous thoracic aorta. MR and CT scanning of the head showed an old large left hemispheric CVA. No apparent new lesions or bleeding. He had a le ft internal carotid occlusion which has been known since 2016 when he had his stroke. There is heavy plaque in the right carotid system. The report describes it as being associated with severe stenosi s. On my review the plaque is dense enough that it makes it hard for me to assess just how severe th at stenosis is. Abdominal ultrasonography described a stable aneurysm with mild aneurysmal changes, but then says transversely a measure of 5.2 cm is obtained with the disclaimer that the aorta appears tortuous. On my review of the ultrasound, the measurement that is labeled as being 5.2 cm is a sagi ttal view measuring the length of the aneurysm and the AP diameter is closer to 4.1 and the transvers e 3.8-3.9 cm. IMPRESSION AND RECOMMENDATIONS: His symptoms may very well be attributed to symptomatic bradycardia and his heart rates have improved since discontinuing his Lopressor and adding Norvasc to his regimen . While he may very well have significant right carotid stenosis, this should not account for his cu rrent presentation and while his insisted that he has been having mini strokes, I am not able to elicit any focal symptoms that would correspond with a right carotid stenosis. His aneurysm would a ppear to be modest size and the report describing it as being 5.2 cm in diameter would seem to actual ly be a 5.2 cm length. While he is still here in the hospital I would like to get a CT scan of the c hest to evaluate his thoracic aorta and to make sure that the fullness that I am seeing in the left s uprahilar region is not actually a parenchymal mass. He was able to blow out reasonably hard against my hand, but he probably does have more COPD than would tolerate pneumonectomy. I am going to see h im in the office in about 2 weeks' time and reevaluate to see how he is doing off of his Lopressor an d I can check a carotid ultrasound here in the office to get information based on Doppler measurement s rather than relying on anatomic measurements with the potential of artifact from calcified plaque a nd timing of the dye injection.
[2018-03-08] MEDS: Aspirin 81 mg Enteric Coated Tablet PO SCH (11:52)
--- NOTE | 2018-03-08 12:58 | CT ---
CONTRAST ENHANCED CT CHEST: History: Prominent aorta left hilar mass. Comparison: Contrast enhanced CT of the chest performed. Coronal and sagittal reconstructed images pe rformed. FINDINGS: Images demonstrate multiple non healed left sided rib fractures. Small bilateral pleural effusions seen. Areas of airspace opacity seen in the apical aspect of the right upper lobe. Areas of patchy density also seen in the right middle lobe. Some minimal airspace opacities also seen in the lingula. Coronary artery calcifications seen. There is calcification of the aortic valve. There is an area of hypodensity soft tissue density involving the left adrenal gland measuring approx imately 19 x 18 mm. This may represent a left adrenal lesion. This lesion was present on the patient' s previous CT of the chest and abdomen from August 2009 and is unchanged. There is a right paratrac heal lymph node measuring 1.6 x 1.9 x 2.2 cm. Correlate with PET imaging if clinically indicated. IMPRESSION: 1. Areas of airspace opacity seen in both lungs. 2. Small bilateral pleural effusions. 3. Right paratracheal enlarged lymph node. POS: [facility]
[2018-03-08] MEDS: hydrALAZINE 20 MG/ML VIAL SLOW IVP PRN (15:56)
[2018-03-08] MEDS: Thiamine HCl 200 MG/2 ML VIAL SLOW IVP SCH (15:57)
--- NOTE | 2018-03-08 17:43 | PDOC.PN ---
- Subjective Encounter Start Date: 03/08/18 Encounter Start Time: 11:15 Subjective: pt up in bed no complains - Objective Resuscitation Status: Resuscitation Status FULL:Full Resuscitation Vital Signs & Weight: Vital Signs (12 hours) Temp Pulse Resp BP BP BP BP 03/08/18 17:03 62 136/65 03/08/18 16:00 184/77 H 03/08/18 15:56 65 184/77 H 03/08/18 15:52 97.7 F 65 18 184/77 H 03/08/18 11:50 96.9 F L 67 16 169/75 H 169/75 H 03/08/18 08:35 158/72 H 03/08/18 08:34 66 158/72 H 03/08/18 08:00 98 F 66 16 03/08/18 07:15 98 F 66 16 158/72 H 158/72 H Pulse Ox 03/08/18 17:03 03/08/18 16:00 03/08/18 15:56 03/08/18 15:52 98 03/08/18 11:50 98 03/08/18 08:35 03/08/18 08:34 03/08/18 08:00 93 L 03/08/18 07:15 93 L Weight Weight 157 lb 14.4 oz Most Recent Monitor Data Heart Rate from ECG 89 NIBP 166/81 NIBP BP-Mean 130 Respiration from ECG 23 SpO2 100 I&O: 03/07/18 03/08/18 03/09/18 06:59 06:59 06:59 Intake Total 2892 740 Output Total 1725 1570 Balance 1167 -830 Result Diagrams: 03/08/18 04:34 03/08/18 04:34 Phys Exam - Physical Examination HEENT: PERRLA, moist MMs, sclera anicteric, TM's clear, oral pharynx no lesions , 2+ tonsils Neck: no nodes, no JVD, supple, full ROM Respiratory: no wheezing, no rales, no rhonchi, wheezing present, clear to auscultation bilateral Cardiovascular: RRR, no significant murmur, no rub, gallop, irregular Gastrointestinal: soft, non-tender, no distention, positive bowel sounds Dx/Plan (1) Acute metabolic encephalopathy Code(s): G93.41 - METABOLIC ENCEPHALOPATHY Status: Acute (2) Aphasia Code(s): R47.01 - APHASIA Status: Acute Comment: Large left MCA CVA. Continue Speech therapy. (3) CVA (cerebral vascular accident) Code(s): I63.9 - CEREBRAL INFARCTION, UNSPECIFIED Status: Acute Comment: Continue ASA. Possibly at Plav[facility] in the future per Dr. De Los Santos. Mobilize. D/C cristina. (4) Bradycardia Code(s): R00.1 - BRADYCARDIA, UNSPECIFIED Status: Acute (5) HTN (hypertension) Code(s): I10 - ESSENTIAL (PRIMARY) HYPERTENSION Status: Chronic - Plan * pt was seen by cv surgery for possible right carotid surgery. Recommended to follow up as outpatient. pt still smokes at home. Pt's bp still high. Started on hydralizine. No BB due to bradycardia. spoke with cardiology pt will need monitor on discharge. will order PT to evaluate pt. Review of Systems - Review of Systems ENT: negative: Ear Pain, Ear Discharge, Nose Pain, Nose Discharge, Nose Congestion, Mouth Pain, Mouth Swelling, Throat Pain, Throat Swelling, Other Respiratory: negative: Cough, Dry, Shortness of Breath, Hemoptysis, SOB with Excertion, Pleuritic Pain, Sputum, Wheezing Gastrointestinal: negative: Nausea, Vomiting, Abdominal Pain, Diarrhea, Constipation, Melena, Hematochezia, Other - Medications/Allergies Allergies/Adverse Reactions: Allergies Allergy/AdvReac Type Severity Reaction Status Date / Time No Known Drug Allergies Allergy Verified 11/24/15 22:51 Medications: Current Medications Acetaminophen (Tylenol) 650 mg PO Q4H PRN PRN Reason: Headache/Fever or Pain Last Admin: 03/07/18 09:42 Dose: 650 mg Acetaminophen (Tylenol) 650 mg [place] Q4H PRN PRN Reason: Headache/Fever or Pain Amlodipine Besylate (Norvasc) 10 mg PO DAILY [facility] Last Admin: 03/08/18 08:34 Dose: 10 mg Aspirin (Ecotrin) 81 mg PO 1200 [facility] Last Admin: 03/08/18 11:52 Dose: 81 mg Atorvastatin Calcium (Lipitor) 80 mg PO HS [facility] Last Admin: 03/07/18 20:43 Dose: 80 mg Enoxaparin Sodium (Lovenox) 40 mg SC 0900 [facility] Famotidine (Pepcid) 20 mg PO BID [facility] Last Admin: 03/08/18 08:35 Dose: 20 mg Ferrous Sulfate (Feosol) 325 mg PO TID [facility] Last Admin: 03/08/18 15:57 Dose: 325 mg Folic Acid (Folvite) 1 mg PO DAILY [facility] Last Admin: 03/08/18 08:34 Dose: 1 mg Gabapentin (Neurontin) 1,200 mg PO TID [facility] Last Admin: 03/08/18 15:57 Dose: 1,200 mg Hydralazine HCl (Apresoline) 10 mg SLOW IVP Q4H PRN PRN Reason: SBP GREATER THAN 160 Last Admin: 03/08/18 15:56 Dose: 10 mg Iron/Minerals/Multivitamins (Theragran M) 1 tab PO DAILY [facility] Last Admin: 03/08/18 08:35 Dose: 1 tab Lisinopril (Zestril) 40 mg PO DAILY [facility] Last Admin: 03/08/18 08:35 Dose: 40 mg Lorazepam (Ativan) 1 mg SLOW IVP Q4H PRN PRN Reason: Anxiety/Agitation Discontinue Previous Narcotic Pain Medications And Benzodiazepines 1 each FS .ONE [facility] Stop: 04/05/18 04:16 Ondansetron HCl (Zofran Odt) 4 mg PO Q6H PRN PRN Reason: Nausea/Vomiting Last Admin: 03/07/18 17:57 Dose: 4 mg Ondansetron HCl (Zofran) 4 mg IVP Q6H PRN PRN Reason: Nausea/Vomiting Pantoprazole Sodium (Protonix) 40 mg PO DAILY [facility] Last Admin: 03/08/18 08:34 Dose: 40 mg Sodium Chloride (Flush - Normal Saline) 10 ml IVF Q12HR [facility] Sodium Chloride (Flush - Normal Saline) 10 ml IVF PRN PRN PRN Reason: Saline Flush Thiamine HCl (Thiamine Hcl) 100 mg SLOW IVP Q24HR [facility] Last Admin: 03/08/18 15:57 Dose: 100 mg Trazodone HCl (Desyrel) 50 mg PO HS PRN PRN Reason: Insomnia
[2018-03-08] MEDS: Atorvastatin Calcium 40 MG TAB PO SCH (21:36)
[2018-03-08] MEDS: hydrALAZINE 25 MG TAB PO SCH (21:37)
[2018-03-09] MEDS ORDERED: Potassium Chloride 20 MEQ TAB PO SCH (08:30)
--- NOTE | 2018-03-09 09:01 | PRG ---
DATE OF SERVICE: 03/09/2018 The patient feels better, he wants to go home. PHYSICAL EXAMINATION: VITAL SIGNS: Temperature 99.0, pulse 65, respirations 16, O2 saturation 97%, blood pressure 169/79. HEENT: Unremarkable. NECK: No lymphadenopathy, no JVD. LUNGS: Clear without wheezing or rhonchi. CARDIAC: S1 and S2 regular. ABDOMEN: Soft. EXTREMITIES: No edema. LABORATORY DATA: No labs were obtained today. ASSESSMENT: 1. Status post bradycardia at the time of admission. 2. Status post respiratory failure. 3. Small right peritracheal node on CT scan. 4. Occlusion of left ICA. PLAN: 1. I doubt that the lymph node in the chest is of any significant pathology. If suspicious to the [facility] physician then this will need a PET scan as an outpatient. 2. Stable for discharge from my standpoint. 3. The patient has been told not to smoke.
[2018-03-09] MEDS: Lisinopril 20 MG TAB PO SCH (10:23)
[2018-03-09] MEDS: Multivitamin W/ Minerals 1 TAB PO SCH (10:24)
[2018-03-09] MEDS: Famotidine 20 MG TAB PO SCH ×2 (10:24→21:29)
[2018-03-09] MEDS: Amlodipine 10 MG TAB PO SCH (10:24)
[2018-03-09] MEDS: hydrALAZINE 25 MG TAB PO SCH ×3 (10:25→21:29)
[2018-03-09] MEDS: Folic Acid 1 MG TAB PO SCH (10:25)
[2018-03-09] MEDS: Ferrous Sulfate 325 MG TAB PO SCH ×3 (10:25→21:29)
[2018-03-09] MEDS: Gabapentin 400 MG CAP PO SCH ×3 (10:26→21:29)
[2018-03-09] MEDS: Enoxaparin Sodium 40 MG/0.4 ML SYRINGE SC SCH (10:26)
--- NOTE | 2018-03-09 11:52 | PDOC.PN ---
- Subjective Encounter Start Date: 03/09/18 Encounter Start Time: 11:58 Patient seen following admission for respiratory failure, bradycardia and CVA. nO COMPLAINTS TODAY. nO ACUTE EVENTS OVERNIGHT- bp BETTER CONTROLLED. fAMILY MEMBER CONCERNED about his ability to ambulate and has had few near falls. - Objective Resuscitation Status: Resuscitation Status FULL:Full Resuscitation Vital Signs & Weight: Vital Signs (12 hours) Temp Pulse Resp BP BP Pulse Ox 03/09/18 08:22 65 169/79 H 97 03/09/18 08:20 99.0 F 67 16 179/85 H 94 L 03/09/18 08:00 99.0 F 65 16 169/79 H 03/09/18 04:00 99.0 F 54 L 20 174/80 H 97 Weight Weight 157 lb 14.4 oz Most Recent Monitor Data Heart Rate from ECG 89 NIBP 166/81 NIBP BP-Mean 130 Respiration from ECG 23 SpO2 100 I&O: 03/08/18 03/09/18 03/10/18 06:59 06:59 06:59 Intake Total 740 Output Total 1570 2725 Balance -830 -2725 Result Diagrams: 03/08/18 04:34 03/08/18 04:34 Phys Exam - Physical Examination Constitutional: NAD HEENT: moist MMs, sclera anicteric, oral pharynx no lesions Neck: no JVD, supple, full ROM Respiratory: no wheezing, no rhonchi, clear to auscultation bilateral Cardiovascular: RRR, no rub + systolic murmur Gastrointestinal: soft, non-tender, no distention, positive bowel sounds Musculoskeletal: no edema, pulses present Neurological: non-focal, moves all 4 limbs Psychiatric: normal affect, A&O x 3 Skin: no rash, normal turgor Dx/Plan (1) Bradycardia Code(s): R00.1 - BRADYCARDIA, UNSPECIFIED Status: Acute Comment: Stable, asymptomatic. Evaluated by cardiology. Will need a monitor on discharge. (2) Aphasia Code(s): R47.01 - APHASIA Status: Acute Comment: 2/2 Large left MCA CVA. [employer] on board. (3) CVA (cerebral vascular accident) Code(s): I63.9 - CEREBRAL INFARCTION, UNSPECIFIED Status: Acute Qualifiers: CVA mechanism: occlusion Precerebral and cerebral artery: middle cerebral artery Laterality of affected vessel: left Qualified Code(s): I63.512 - Cerebral infarction due to unspecified occlusion or stenosis of left middle cerebral artery Comment: Continue ASA. (4) Dyslipidemia Code(s): E78.5 - HYPERLIPIDEMIA, UNSPECIFIED Status: Chronic Comment: Continue Statins. (5) HTN (hypertension) Code(s): I10 - ESSENTIAL (PRIMARY) HYPERTENSION Status: Chronic Qualifiers: Hypertension type: essential hypertension Qualified Code(s): I10 - Essential (primary) hypertension (6) Tobacco abuse Code(s): Z72.0 - TOBACCO USE Status: Chronic (7) Acute metabolic encephalopathy Code(s): G93.41 - METABOLIC ENCEPHALOPATHY Status: Resolved - Plan cont current plan of care, plan discussed w/ family, PT/OT, social service liaison, speech therapy, DVT proph w/lovenox PT/OT assessment CV surgery to f/u with patient on outpatient basis- possible right carotid surgery. No BB due to bradycardia. Review of Systems - Medications/Allergies Allergies/Adverse Reactions: Allergies Allergy/AdvReac Type Severity Reaction Status Date / Time No Known Drug Allergies Allergy Verified 11/24/15 22:51 Medications: Current Medications Acetaminophen (Tylenol) 650 mg PO Q4H PRN PRN Reason: Headache/Fever or Pain Last Admin: 03/07/18 09:42 Dose: 650 mg Acetaminophen (Tylenol) 650 mg [place] Q4H PRN PRN Reason: Headache/Fever or Pain Amlodipine Besylate (Norvasc) 10 mg PO DAILY [facility] Last Admin: 03/09/18 10:24 Dose: 10 mg Aspirin (Ecotrin) 81 mg PO 1200 [facility] Last Admin: 03/08/18 11:52 Dose: 81 mg Atorvastatin Calcium (Lipitor) 80 mg PO HS [facility] Last Admin: 03/08/18 21:36 Dose: 80 mg Enoxaparin Sodium (Lovenox) 40 mg SC 0900 [facility] Last Admin: 03/09/18 10:26 Dose: 40 mg Famotidine (Pepcid) 20 mg PO BID [facility] Last Admin: 03/09/18 10:24 Dose: 20 mg Ferrous Sulfate (Feosol) 325 mg PO TID [facility] Last Admin: 03/09/18 10:25 Dose: 325 mg Folic Acid (Folvite) 1 mg PO DAILY [facility] Last Admin: 03/09/18 10:25 Dose: 1 mg Gabapentin (Neurontin) 1,200 mg PO TID [facility] Last Admin: 03/09/18 10:26 Dose: 1,200 mg Hydralazine HCl (Apresoline) 10 mg SLOW IVP Q4H PRN PRN Reason: SBP GREATER THAN 160 Last Admin: 03/08/18 15:56 Dose: 10 mg Hydralazine HCl (Apresoline) 25 mg PO TID [facility] Last Admin: 03/09/18 10:25 Dose: 25 mg Iron/Minerals/Multivitamins (Theragran M) 1 tab PO DAILY [facility] Last Admin: 03/09/18 10:24 Dose: 1 tab Lisinopril (Zestril) 40 mg PO DAILY [facility] Last Admin: 03/09/18 10:23 Dose: 40 mg Lorazepam (Ativan) 1 mg SLOW IVP Q4H PRN PRN Reason: Anxiety/Agitation Discontinue Previous Narcotic Pain Medications And Benzodiazepines 1 each FS .ONE [facility] Stop: 04/05/18 04:16 Ondansetron HCl (Zofran Odt) 4 mg PO Q6H PRN PRN Reason: Nausea/Vomiting Last Admin: 03/07/18 17:57 Dose: 4 mg Ondansetron HCl (Zofran) 4 mg IVP Q6H PRN PRN Reason: Nausea/Vomiting Pantoprazole Sodium (Protonix) 40 mg PO DAILY [facility] Last Admin: 03/09/18 10:25 Dose: 40 mg Potassium Chloride (K-Dur) 20 meq PO QAM-WM [facility] Sodium Chloride (Flush - Normal Saline) 10 ml IVF Q12HR [facility] Last Admin: 03/08/18 21:37 Dose: 10 ml Sodium Chloride (Flush - Normal Saline) 10 ml IVF PRN PRN PRN Reason: Saline Flush Thiamine HCl (Thiamine Hcl) 100 mg SLOW IVP Q24HR [facility] Last Admin: 03/08/18 15:57 Dose: 100 mg Trazodone HCl (Desyrel) 50 mg PO HS PRN PRN Reason: Insomnia
[2018-03-09] MEDS ORDERED: hydrALAZINE 25 MG TAB PO SCH ×2 (11:56→12:15)
[2018-03-09] MEDS: Aspirin 81 mg Enteric Coated Tablet PO SCH (12:50)
[2018-03-09] MEDS: Thiamine HCl 200 MG/2 ML VIAL SLOW IVP SCH (18:27)
[2018-03-09] MEDS: Atorvastatin Calcium 40 MG TAB PO SCH (21:28)
[2018-03-10 05:23] LABS: Mean Corpuscular Hemoglobin 35.3 pg (27.0-31.0); Mean Platelet Volume 9.4 fL (7.4-10.4); Platelet Count 141 thou/uL (130-400); RBC Distribution Width 11.5 % (11.5-14.5); White Blood Cell (WBC) Count 7.4 thou/uL (4.8-10.8)
[2018-03-10 05:40] LABS: Anion Gap 13 mmol/L (10-20); BUN (Urea Nitrogen) 5 mg/dL (8.4-25.7); Calc. Creatinine Clearance 92 mL/min (70-130); Calcium 8.8 mg/dL (7.8-10.44); Carbon Dioxide 27 mmol/L (23-31); Chloride 108 mmol/L (98-107); Estimated GFR-MDRD Greater than 90; Glucose 96 mg/dL (80-115); Potassium 3.9 mmol/L (3.5-5.1); Sodium 144 mmol/L (136-145)
[2018-03-10] MEDS ORDERED: Potassium Chloride 20 MEQ TAB PO SCH (08:00)
[2018-03-10 08:17] VITALS: TEMP 98.1
[2018-03-10] MEDS: hydrALAZINE 25 MG TAB PO SCH (08:37)
[2018-03-10] MEDS: Gabapentin 400 MG CAP PO SCH (08:37)
[2018-03-10] MEDS: Ferrous Sulfate 325 MG TAB PO SCH (08:37)
[2018-03-10] MEDS: Lisinopril 20 MG TAB PO SCH (08:37)
[2018-03-10] MEDS: Amlodipine 10 MG TAB PO SCH (08:38)
[2018-03-10] MEDS: Folic Acid 1 MG TAB PO SCH (08:38)
[2018-03-10] MEDS: Multivitamin W/ Minerals 1 TAB PO SCH (08:38)
[2018-03-10] MEDS: Enoxaparin Sodium 40 MG/0.4 ML SYRINGE SC SCH (08:38)
[2018-03-10] MEDS: Famotidine 20 MG TAB PO SCH (09:19)
--- NOTE | 2018-03-10 09:27 | PRG ---
DATE OF SERVICE: 03/10/2018 The patient is doing well, had no acute complaints. PHYSICAL EXAMINATION: VITAL SIGNS: Temperature is 98.1, pulse 64, respiration 16, O2 sat 96%, blood pressure 174/72. HEENT: Unremarkable. NECK: No JVD. CHEST: Clear. CARDIAC: S1 and S2 regular. ABDOMEN: Soft. EXTREMITIES: No edema. LABORATORY DATA: White blood cell count 7.4, hematocrit 35, platelet count 141. Sodium 144, potassi um 3.9, chloride 108, CO2 27, BUN 5, creatinine 0.7, glucose 96. ASSESSMENT: 1. Stable respiratory status. He is status post endotracheal intubation for bradycardia at the time of admission. 2. Occlusion left ICA. 3. Small right peritracheal lymph node. PLAN: The patient is stable for discharge to home. He will need to follow up with me in about 6 mon ths in regards to the mediastinal lymph node. He will likely need a repeat CT scan done at that time .
[2018-03-10 11:40] VITALS: BP 178/77
--- NOTE | 2018-03-10 16:47 | DIS ---
DATE OF ADMISSION: 03/06/2018 DATE OF DISCHARGE: 03/10/2018 DISCHARGE DIAGNOSES: Symptomatic bradycardia, aphasia, cerebrovascular accident , dyslipidemia, hypertension, tobacco abuse, acute metabolic encephalopathy, acute respiratory failure. HISTORY OF PRESENT ILLNESS/HOSPITAL COURSE: HPI not available at the time of dictation of this discharge summary. The patient was admitted by Dr. Contreras. While in the hospital, Mr. Johnny Abreu was treated for respiratory failure which required intubation, symptomatic bradycardia and his history of cerebrovascular accident. By the time I examined him, he has no complaints and he had no acute event. His blood pressure was elevated, but was being controlled with p.o. medications. He had a CT scan which showed a mediastinal lymph node and he is to follow up with Pulmonary Service in [address] scan of his chest. Also for his symptomatic bradycardia, his Lopressor was held and patient was discharged on the monitor. He is to follow up with Cardiovascular Surgery as he had a right carotid stenosis and they will see him in clinic to see if further action needs to be taken regarding that fall. He had PT/OT assessment while in the hospital and was deemed to be at his baseline. Patient was noted to have had a cerebral infarction due to unspecified occlusion of the left middle cerebral artery, which is thought to be the reason for his old CVA resulting in some speech deficiencies. DISCHARGE MEDICATIONS: Amlodipine 10 mg daily, aspirin 81 mg daily, folic acid 1 mg daily, hydralazine 50 mg 3 times a day, lisinopril 40 mg daily, multivitamin with minerals 1 tablet daily, omega 3 fatty acid/fish oil one caps 3 times a day, gabapentin 1200 mg 3 times daily, trazodone 50 mg at bedtime as needed, nicotine patch 1 daily, guaifenesin 200 mg q.6 hours p.r.n., albuterol sulfate 1 puff inhaled every 4 hours as needed, ferrous sulfate 325 mg 3 times daily, atorvastatin 80 mg at bedtime, omeprazole 20 mg daily, loratadine 10 mg daily. PHYSICAL EXAMINATION: He was examined on day of discharge. VITAL SIGNS: Blood pressure 174/72, oxygen saturation 96% on room air, respiratory rate 16, pulse rate 64, temperature 98.1 degrees Fahrenheit. GENERAL: Not in acute distress. He is sitting up comfortably in bed. HEENT: Not pale, anicteric. Moist mucous membranes. NECK: Supple, full range of movement. No JVD. CARDIOVASCULAR: S1, S2 only. Regular rate and rhythm. No murmurs, rubs or gallops. RESPIRATORY: Clear to auscultation bilaterally. No wheezes or rales. ABDOMEN: Soft, nontender, nondistended. Bowel sounds normoactive. MUSCULOSKELETAL: No edema. NEUROLOGIC: Alert and well oriented to time, place and person. No focal deficits. SKIN: Warm, dry, well-perfused. No rashes or lesions. PSYCHIATRIC: Normal mood and affect. LABORATORY DATA: WBC 7.4, hemoglobin 12, platelet count 141. Sodium 144, potassium 3.9, chloride 108, carbon dioxide 27, BUN 5, creatinine 0.76, glucose 96, calcium 8.8. IMAGING: Chest CT, ultrasound, brain MRI, CT [place] [facility] [place]: This showed complete occlusion of the left internal carotid artery at its origin with severe stenosis of the right internal carotid artery just distal to its origin. Brain MRI showed sinusitis changes with old left MCA infarct, no acute intracranial abnormalities. CONSULTS: Cardiovascular Surgery, Cardiology, Neurology, Pulmonology CONDITION ON DISCHARGE: Stable and improved. PROCEDURES: Endotracheal intubation, echocardiogram which showed EF of 60-65% with moderate mitral regurgitation, moderate aortic stenosis, mild to moderate tricuspid regurgitation, and mild pulmonic regurgitation. DIET: Heart healthy. CARE GOALS: Followup with Cardiovascular Surgery for possible intervention, also to follow up with Pulmonary in 6 months. He is to follow up with his primary care physician within a week for blood pressure check and optimization of his antihypertensives. ACTIVITY: Resume as tolerated and as directed by PT/OT. Discharge time 65 minutes including chart review and documentation. KYLIE
--- NOTE | 2018-03-11 13:11 | HP ---
DATE OF ADMISSION: 03/06/2018 TIME OF SERVICE: 04:10. PRIMARY CARE PHYSICIAN: Dr. Frederick. CHIEF COMPLAINT: Unresponsive. HISTORY OF PRESENT ILLNESS: Mr. Turner is a 72-year-old white male who lives at home. Around 10:00 p.m., he was sitting at home and basically slumped over in his chair and he was not really responsiv e. He was last known normal around 2200, was found altered around 2245. EMS was activated. On rout e, the patient was obtunded and was intubated for not protecting his airway. Monitor on route reveal ed bradycardia by pulse and the patient was in bigeminy. He got 3 liters of fluids, multiple rounds of push dose pressors of unknown type plus atropine. The patient does have a history of stroke back in 2016 with ongoing right-sided deficits. He has a h istory of diabetes and hypertension. On arrival to the emergency department, the patient was intubated and sedated. It was unchanged when I last saw him. Vital signs in the emergency department remained stable. We were subsequently called for admission. The patient is unable to give any further history. PAST MEDICAL HISTORY: 1. Benign prostatic hypertrophy. 2. Hypertension. 3. Hyperlipidemia. 4. Diabetes mellitus type 2, non-insulin dependent. 5. Cerebrovascular disease status post CVA in 2016. 6. Abdominal aortic aneurysm. 7. History of recurrent blood clots. 8. PTSD. PAST SURGICAL HISTORY: Includes bilateral inguinal hernia repair. HOME MEDICATIONS: 1. Atorvastatin 80 mg p.o. at bedtime. 2. Lisinopril 40 mg p.o. b.i.d. 3. Gabapentin 1200 mg p.o. t.i.d. 4. Prilosec 20 mg daily. 5. Metoprolol tartrate 25 mg p.o. b.i.d. 6. Aspirin 500 mg daily. ALLERGIES: No known drug allergies. FAMILY HISTORY: Negative for clotting or bleeding disorder. No immune dysfunction, no premature cor onary artery disease. SOCIAL HISTORY: Significant for one and a half pack per day and does drink several drinks a day. No history of IV drug use. REVIEW OF SYSTEMS: Not obtainable due to intubated status. PHYSICAL EXAMINATION: VITAL SIGNS: Temperature 95.1, pulse 55, blood pressure 160/70, respiratory rate 22, satting 100% on ventilator. GENERAL: He is sedated and intubated. He is in no distress. HEENT: Normocephalic, atraumatic. Pupils equal, round, and reactive to light bilaterally, mucous me mbranes are moist. Oral endotracheal tube and oral gastric tube in place. NECK: Supple. There is no lymphadenopathy, JVD, or thyromegaly. He has got nonpalpable left-sided carotid upstroke. He has got right-sided normal carotid upstrokes without bruit. LUNGS: Clear. He has no wheezes, rales or rhonchi. CARDIOVASCULAR: He is bradycardic, regular. Normal S1, S2. He appears to have frequent PVCs. SKIN: Warm, moist, and well perfused. There is no rash or lesion. ABDOMEN: Soft, it is nontender, nondistended. He has no masses, no organomegaly. There is no invol untary guarding. MUSCULOSKELETAL: Normal to inspection. Large joints appear normal. There is no evidence of inflamm ation or palpable effusions. NEUROLOGIC: Not testable. LABORATORY DATA: Sodium is 142, potassium 3.5, chloride 114, bicarbonate 17, BUN 12, creatinine 0.83 , glucose 74, calcium of 7.1 and magnesium of 2.5. Liver function is completely within normal limits. CBC showed a white count of 15.0 with a normal differential, hemoglobin 11.8, hematocrit of 36.3, and platelet count 153,000. ABG showed a pH of 7.30, pCO2 of 37, pO2 of 372, sat of 99.7. Urinalysis, no white blood cells, no bacteria. IMAGING: A CT scan of the brain showed no acute abnormalities. CT angiography with complete occlusi on of left internal carotid. Right carotid is open. Angiogram, otherwise negative. Chest x-ray showed no acute abnormalities. ASSESSMENT AND PLAN: 1. Metabolic encephalopathy. The patient has a metabolic acidosis. PH 7.3, trying to compensate by blowing off CO2. He is currently intubated. We will continue on the ventilator and ask Pulmonary a nd Critical Care to see. We will use sedation protocol. 2. Acute respiratory failure, not hypercarbic. No evidence of hypoxemic. Currently intubated as ab ove. 3. History of cerebrovascular disease with stroke in 2016. No evidence of another stroke. May need to get an MRI. 4. Diabetes mellitus type 2, q.i.d. a.c. and at bedtime Accu-Cheks plus sliding scale insulin. 5. Hypertension. We will hold his metoprolol and lisinopril at present. If blood pressure is okay, we will use p.r.n. hydralazine as needed. 6. History of blood clots. We will use Lovenox for deep venous thrombosis prophylaxis. 7. Benign prostatic hypertrophy. 8. Gastroesophageal reflux disease. We will continue Prilosec b.i.d. for GI prophylaxis. 9. Hyperlipidemia. 10. History of post-traumatic stress disorder, unknown status. 11. The patient does meet sepsis criteria given his elevated white blood cell count and meets system ic inflammatory response syndrome criteria. We will continue to monitor. I did give prophylactic an tibiotics in the emergency department. We will hold off on those right now. Greater than 45 minutes of critical care time was spent.
--- NOTE | 2018-03-13 09:00 | PQF ---
[employer] Reports [employer] HARRIET Valenzuela OLADIPO [id number] [id number] CLINICAL DOCUMENTATION CLARIFICATION FORM: POST DISCHARGE Please exercise your independent, professional judgment in responding to the clarification form. Clinical indicators are provided on the bottom of this form for your review. Thank you. Please check appropriate box(s): Conflicting documentation was noted in the Medical Record, please clarify if patient is being treated/monitored for: [ ] _Acute CVA [ x ] _History of CVA [ ] Other diagnosis [ ] Unable to determine In addition, please specify: Present on Admission (POA): [ ] Yes [ ] No [ ] Unable to determine For continuity of documentation, please document condition throughout progress notes and discharge summary. Thank You. CLINICAL INDICATORS - SIGNS / SYMPTOMS/ LABS CT [place] [facility] - This showed complete occlusion of the left internal carotid artery at its origin with severe stenosis of the right internal carotid artery just distal to its origin. Brain MRI showed sinusitis changes with old left MCA infarct, no acute intracranial abnormalities. - Discharge Summary MRI is negative for any acute neurological events - PN 03/07/18 (Dr. Abreu). At this jeff diagnosis is most likely due to cardiovascular event rather than another neurological event. CVA Acute - PN 03/07/18 (Niels), PN 03/09/18 (Ranjit) RISK FACTORS HTN, chronic atrial fibrillation TREATMENT Aspirin 81mg po, (This form is maintained as a part of the permanent medical record) 2014 [employer]. All Rights Reserved Carla Larkin, CCS, IRRIGATOR, CASC [email or web address]
== END 2018-03-10 10:29 | disposition home or self-care (01) | DRG 208 ==
LOC: ERS 00:05 → CCU 02:51 → 2NO 03-07 12:32
PROVIDERS: ADMIT Internal Medicine Infectious Disease; ATTEND Internal Medicine Infectious Disease
PROC: 0BH17EZ Insertion of Endotracheal Airway into Trachea, Via Natural or Artificial Opening (ICD-10-PCS; principal; 2018-03-06)
PROC: 5A1935Z Respiratory Ventilation, Less than 24 Consecutive Hours (ICD-10-PCS; 2018-03-06)
DX: J96.00 Acute respiratory failure, unspecified whether with hypoxia or hypercapnia (principal); G93.41 Metabolic encephalopathy; R47.01 Aphasia; R00.1 Bradycardia, unspecified; I65.22 Occlusion and stenosis of left carotid artery; E78.5 Hyperlipidemia, unspecified; I10 Essential (primary) hypertension; I08.3 Combined rheumatic disorders of mitral, aortic and tricuspid valves; E78.00 Pure hypercholesterolemia, unspecified; I73.9 Peripheral vascular disease, unspecified; I71.4 Abdominal aortic aneurysm, without rupture; F17.210 Nicotine dependence, cigarettes, uncomplicated; Z86.73 Personal history of transient ischemic attack (TIA), and cerebral infarction without residual deficits
CPT/HCPCS: 36415; 51702; 70450; 70496; 70498; 70553; 71045; 71260; 76775; 80048; 80053; 80061; 81003; 81015; 82553; 82805; 84484; 85025; 85027; 85610; 85730; 87040; 87076; 87086; 93005; 93306; 94002; 94760; 96365; 96366; 96368; 96375; 96376; A4216; A9579; G8978-GP-CJ; G8979-GP-CJ; G8980-GP-CJ; G8987-GO-CH; G8988-GO-CH; G8989-GO-CH; G8996-GN-CH; G8997-GN-CH; J0360; J0461; J1650; J2543; J2997; J3010; J3370; J3411; J7050; Q0162; S0028

== ENCOUNTER 2020-03-08 10:34 | Outpatient (CLI) | payer MEDICARE ==
--- NOTE | 2020-03-08 12:09 | RAD ---
CHEST 2 VIEWS: Date: 03/08/2020 HISTORY: Cough. COMPARISON: Chest CT dated 03/08/2018. Chest 1 view dated 03/06/2018. FINDINGS: Increased linear and interstitial parenchymal changes are noted bilaterally, somewhat more prominent in the mid and lower lung zones, greater on the right side, with possibly slight diffuse progression when compared to the prior exam. Atherosclerotic ectatic changes of the aorta. Heart size is normal. No confluent pneumonia. IMPRESSION: Evidence for extensive bilateral linear and interstitial chronic lung disease, evidence for chronic f ibrosis. No new confluent pneumonia or pleural effusion. The possibility of some minimal underlying atypical pneumonia or pneumonitis would be difficult to ex clude in addition to the underlying chronic change. If the patient's symptoms persist or worsen, foll ow-up plain x-ray exam might be considered, or possibly a follow-up chest CT. POS: [facility]
== END 2020-03-08 10:35 | disposition home or self-care (01) ==
LOC: BICRAD 10:34
PROVIDERS: ATTEND Family Medicine
DX: R05 Cough (principal); J84.10 Pulmonary fibrosis, unspecified
CPT/HCPCS: 71046

== ENCOUNTER 2020-05-11 13:39 | Outpatient (CLI) | payer MEDICARE ==
--- NOTE | 2020-05-11 14:24 | CT ---
EXAM: CT Pulmonary Lung Scan PROVIDED CLINICAL HISTORY: Nicotine dependence. History of COPD. COMPARISON: CT thorax on 03/08/2018 FINDINGS: There are scattered areas of honeycombing seen throughout the periphery of the lungs bilaterally with a basilar predominance. There are reticulations seen in a subpleural location with areas of mild traction bronchiectasis present predominantly in the right lower lobe but also in the medial aspect o f the right upper lobe. No discrete pulmonary nodule or mass is seen, and there is no pleural effusion identified. Irregular minimal pleural-based patchy density is seen anterolateral aspect right upper lobe with similar finding seen just superior to the level of the thoracic aorta medial right upper lobe and superior se gment right lower lobe likely related to chronic lung change. Vascular calcifications are seen in the coronary arteries as well as involving the thoracic and visua lized upper abdominal aorta. A mildly enlarged precarinal lymph node is present measuring 1.7 cm in short axis dimension which was also seen on prior exam. Colonic diverticulosis is seen involving the visualized ascending colon. Again noted are adrenal nodu les bilaterally more prominent on the left which are unchanged compared to prior study with nodule in the left measuring approximately 2 cm. Each of these nodules on this exam due to demonstrating att enuation coefficients suggesting adrenal adenomas. IMPRESSION: 1. Lung RADS category 2, benign findings-continued annual screening with low-dose CT scan thorax in 1 2 months. 2. Subcategory S- Chronic interstitial lung changes which have progressed when compared to prior exam with imaging characteristics most suggestive of usual interstitial pneumonia. 3. Prominent vascular calcifications. 4. Bilateral adrenal adenomas.
== END 2020-05-11 13:40 | disposition home or self-care (01) ==
LOC: BICCT 13:39
PROVIDERS: ATTEND Family Medicine
DX: Z12.2 Encounter for screening for malignant neoplasm of respiratory organs (principal); F17.290 Nicotine dependence, other tobacco product, uncomplicated; F17.210 Nicotine dependence, cigarettes, uncomplicated; D35.02 Benign neoplasm of left adrenal gland; D35.01 Benign neoplasm of right adrenal gland; J98.4 Other disorders of lung; I25.10 Atherosclerotic heart disease of native coronary artery without angina pectoris
CPT/HCPCS: G0297